=== PATIENT | female | born 1965 | race Caucasian/White ===

== ENCOUNTER → 2020-08-17 | Outpatient (CLI) | payer BC | LOC: LABNPT 05:53 | PROVIDERS: ATTEND Internal Medicine | DX: Z11.59 Encounter for screening for other viral diseases (principal) ==

== ENCOUNTER → 2021-11-03 | Outpatient (CLI) | payer BC ==
--- NOTE | 2021-11-03 12:49 | Diagnostic Imaging Report ---
PROCEDURE: US Non-ob pelvis comp/trans. TECHNIQUE: Multiple realtime grayscale images were obtained of the pelvis in various projections endovaginally. Transabdominal imaging was also performed. INDICATION: Postmenopausal bleeding The uterus measures 8 x 5 x 4 cm. The endometrium measures 1 cm. The right ovary measures 1.3 x 0.9 cm. The left ovary measures 1.4 x 1.0 cm. There is a 2 cm lesion in the fundus on the left consistent with a fibroid. The endometrium is mildly thickened for postmenopausal patient. No definite focal mass in the endometrium is seen but is slightly more echogenic in the fundus. There is blood flow to the ovaries with no adnexal mass or free fluid. IMPRESSION: Small uterine mass consistent with a fibroid. Endometrium is prominent. Dictated by: Dictated on workstation # [id number]
== END ==
LOC: RAD 11:45
PROVIDERS: ATTEND Internal Medicine
DX: N85.8 Other specified noninflammatory disorders of uterus (principal); N95.0 Postmenopausal bleeding
CPT/HCPCS: 76830; 76856